=== PATIENT | male | born 1960 | race Caucasian/White ===

== ENCOUNTER 2017-11-25 19:16 | Emergency (ER) | payer BC, MEDICAID ==
[~2017-11-25] VITALS: Ht 177.8 cm; Wt 83.9 kg
[2017-11-25 20:18] LABS: Albumin 4.3 g/dL (3.4-5.0); Anion Gap 10 (5-15); Aspartate Aminotransferase 11 U/L (15-37); BUN/Creatinine Ratio 12.3; Blood Urea Nitrogen 15 mg/dL (7-18); Calcium 8.6 mg/dL (8.5-10.1); Carbon Dioxide 21 mmol/L (21-32); Chloride 104 mmol/L (98-107); GFR African American 79 mL/min; GFR Non-African American 66 mL/min; Glucose 228 mg/dL (74-106); Potassium 4.1 mmol/L (3.5-5.1); Sodium 135 mmol/L (136-145)
[2017-11-25 20:20] LABS: Basophils # (auto) 0 uL; Basophils % (auto) 0.7 % (0.0-2.0); Eosinophils # (auto) 0.1 uL; Eosinophils % (auto) 1.6 % (0.0-7.0); Hematocrit 42.4 % (41.0-53.0); Hemoglobin 14.6 g/dL (13.5-17.5); Lymphocytes # (auto) 2.1 uL; Lymphocytes % (auto) 29.5 % (10.0-50.0); Mean Corpuscular Hemoglobin 32.1 pg (28.0-32.0); Mean Corpuscular Hgb Conc. 34.5 g/dL (32.0-36.0); Monocytes # (auto) 0.5 uL; Monocytes % (auto) 6.5 % (0.0-12.0); Neutrophils # (auto) 4.3 uL; Neutrophils % (auto) 61.7 % (37.0-80.0); Nucleated Red Blood Cells % 0.1 %; Platelet Count (auto) 199 10^3/uL (140-450); Red Blood Cells 4.55 10^6/uL (4.5-5.90); Red Cell Distribution Width 12.8 % (11.8-14.3)
[2017-11-25 20:23] LABS: Alanine Aminotransferase 35 U/L (16-61); Alkaline Phosphatase 80 U/L (45-117); Bilirubin, Total 0.5 mg/dL (0.2-1.0); Total Protein 7.6 g/dL (6.4-8.2)
[2017-11-25 23:46] VITALS: BP 143/96
[2017-11-26 00:01] LABS: Urine Bacteria NONE SEEN /hpf (None Seen); Urine Blood Negative /uL (Negative); Urine Hyaline Cast FEW /lpf (0 - 2); Urine Mucus FEW (None Seen); Urine Specific Gravity 1.015 (1.001-1.035); Urine Sperm PRESENT /hpf (None Seen); Urine WBC 1 /hpf (0 - 3)
[2017-11-26 00:15] LABS: Alcohol, Urine < 3.0 mg/dL (0-5); Amphetamine Screen, Urine NEGATIVE (NEGATIVE); Barbiturate Scree,Urine NEGATIVE (NEGATIVE); Benzodiazephine Screen, Urine NEGATIVE (NEGATIVE); Cannabinoid Screen, Urine NEGATIVE (NEGATIVE); Cocaine Screen, Urine NEGATIVE (NEGATIVE); Opiate Scree,Urine NEGATIVE (NEGATIVE); Phencyclidine Screen, Urine NEGATIVE (NEGATIVE)
== END 2017-11-26 | disposition left against medical advice (07) ==
LOC: ER 19:16
DX: R06.02 Shortness of breath (principal); R07.9 Chest pain, unspecified; Z53.21 Procedure and treatment not carried out due to patient leaving prior to being seen by health care provider
CPT/HCPCS: 36415; 70450; 71045; 80053; 80307; 81001; 82962; 83735; 83880; 84484; 85025; 93005

== ENCOUNTER 2021-03-07 17:58 | Emergency (ER) | payer MEDICAID, MEDICARE ==
[2021-03-07 18:15] VITALS: BP 127/82
[2021-03-07] MEDS ORDERED: InsuLIN R (HUMAN) 100 UNITS in SODIUM CHL 0.9% 99 ML IV SCH (18:45)
[2021-03-07] MEDS ORDERED: DEXTROSE (50%) 50ML SYRG IV PRN (18:45)
[2021-03-07] MEDS ORDERED: INSULIN LANTUS (GLARGINE) 1 /0.01ml (100units/ml) SC ONE (18:45)
[2021-03-07] MEDS ORDERED: SODIUM CHLORIDE 0.9% 1,000 ML IV ONE (18:45)
[2021-03-07 18:52] LABS: Basophils # (auto) 0.1 10 ^3/uL (0-0.2); Basophils % (auto) 1.1 % (0.0-2.0); Eosinophils # (auto) 0.1 10 ^3/uL (0-0.8); Eosinophils % (auto) 1.6 % (0.0-7.0); Hemoglobin 15.8 g/dL (13.5-17.5); Lymphocytes # (auto) 2.2 10 ^3/uL (0.4-5.4); Lymphocytes % (auto) 25.1 % (10.0-50.0); Mean Corpuscular Hemoglobin 32.2 pg (28.0-32.0); Mean Corpuscular Hgb Conc. 35.2 g/dL (32.0-36.0); Mean Corpuscular Volume 91.7 fL (80.0-100.0); Monocytes # (auto) 0.6 10 ^3/uL (0-1.3); Monocytes % (auto) 6.4 % (0.0-12.0); Neutrophils # (auto) 5.7 10 ^3/uL (1.6-8.6); Neutrophils % (auto) 65.8 % (37.0-80.0); Nucleated Red Blood Cells % 0.1 %; Platelet Count (auto) 223 10^3/uL (140-450); Red Cell Distribution Width 13.1 % (11.8-14.3); White Blood Cell 8.7 10^3/uL (4.4-10.8)
[2021-03-07 19:23] LABS: Albumin 3.4 g/dL (3.4-5.0); Magnesium 1.9 mg/dL (1.6-2.6); Potassium 4.7 mmol/L (3.5-5.1)
[2021-03-07 19:26] LABS: Total Protein 7.3 g/dL (6.4-8.2)
[2021-03-07] MEDS ORDERED: ACCU-CHEK COMFORT CURVE STRIP VI SCH (19:30)
[2021-03-07 19:36] LABS: BUN/Creatinine Ratio 22.8
[2021-03-08] MEDS ORDERED: INSULIN LANTUS (GLARGINE) 1 /0.01ml (100units/ml) SC SCH (10:00)
== END 2021-03-08 06:39 | disposition left against medical advice (07) ==
LOC: EDBD 17:58 → ER 18:02
DX: E11.65 Type 2 diabetes mellitus with hyperglycemia (principal); R53.1 Weakness; R11.2 Nausea with vomiting, unspecified; J45.909 Unspecified asthma, uncomplicated; F17.210 Nicotine dependence, cigarettes, uncomplicated
CPT/HCPCS: 36415; 80053; 82010; 83735; 85025; 93005; 99284; J1815

== ENCOUNTER 2021-08-31 12:48 | Inpatient (IN) | payer MEDICARE ==
[~2021-08-31] VITALS: Ht 165.1 cm; Wt 74.2 kg
[2021-08-31] MEDS ORDERED: SODIUM CHLORIDE 0.9% 1,000 ML IV ONE ×4 (13:00→21:15)
[2021-08-31] MEDS ORDERED: MORPHINE SULFATE 4 MG/ML SYR/VIAL IV ONE ×2 (14:30→18:45)
[2021-08-31 15:19] LABS: Hematocrit 42.2 % (41.0-53.0); Hemoglobin 14.4 g/dL (13.5-17.5); Mean Corpuscular Hemoglobin 30.6 pg (28.0-32.0); Mean Corpuscular Hgb Conc. 34.2 g/dL (32.0-36.0); Mean Corpuscular Volume 89.7 fL (80.0-100.0); Red Cell Distribution Width 13.2 % (11.8-14.3)
[2021-08-31 15:23] LABS: Basophils % (manual) 0 (0.0-2.0); Blast Cells 0; Eosinophils % (manual) 0 (0-7); Metamyelocytes % 0; Myelocytes % 0; Promyelocytes % 0; Reactive Lymphocytes 0
[2021-08-31 15:37] LABS: Albumin 2.6 g/dL (3.4-5.0); Calcium 9.4 mg/dL (8.5-10.1); Potassium 4.6 mmol/L (3.5-5.1)
[2021-08-31 15:45] LABS: BUN/Creatinine Ratio 30.3; Bilirubin, Total 1.3 mg/dL (0.2-1.0); Total Protein 7.4 g/dL (6.4-8.2)
[2021-08-31 15:51] LABS: Band Neutrophils % (manual) 20; Lymphocytes % (manual) 8 (10.0-50.0); Monocytes % (manual) 7 (0-12)
[2021-08-31] MEDS ORDERED: InsuLIN REG 1unit/0.01ml Soln (100units/ml) IV STA (15:58)
[2021-08-31 16:58] LABS: Urine Bacteria FEW /hpf (None Seen); Urine Blood 1+ /uL (Negative); Urine Specific Gravity 1.028 (1.001-1.035); Urine WBC 1 /hpf (0 - 3)
[2021-08-31] MEDS ORDERED: InsuLIN REG 1unit/0.01ml Soln (100units/ml) IV ONE (17:00)
[2021-08-31] MEDS ORDERED: NITROGLYCERIN 0.4 MG SL TAB SL PRN ×2 (17:30→18:45)
[2021-08-31] MEDS ORDERED: MORPHINE SULFATE INJECTION 2 MG/ML SYRG IV PRN ×2 (17:30→18:45)
[2021-08-31] MEDS ORDERED: DEXTROSE (50%) 50ML SYRG IV PRN (17:30)
[2021-08-31] MEDS ORDERED: SOD CHL 0.9%/ KCL 20MEQ 1,000 ML IV PRN (17:30)
[2021-08-31] MEDS ORDERED: InsuLIN REG 1unit/0.01ml Soln (100units/ml) SC ONE (17:30)
[2021-08-31] MEDS ORDERED: SODIUM CHLORIDE 0.9% 3,000 ML IV ONE (17:30)
[2021-08-31] MEDS: ACCU-CHEK COMFORT CURVE STRIP VI SCH (17:38)
[2021-08-31] MEDS ORDERED: GABA300C10 PO (17:55)
[2021-08-31] MEDS ORDERED: METF-371 PO (17:55)
[2021-08-31] MEDS ORDERED: POM SC (17:57)
[2021-08-31] MEDS: InsuLIN REG 1unit/0.01ml Soln (100units/ml) SC SCH ×2 (18:00→22:58)
[2021-08-31] MEDS ORDERED: METOPROLOL SUCCINATE XL 50 MG TAB PO ONE (18:30)
[2021-08-31] MEDS ORDERED: BUDESONIDE (INHALATION) 0.5 MG/2 ML NEB NEB ONE (18:30)
[2021-08-31] MEDS ORDERED: cefTRIAXone 1GM/50ML D5W 50 ML IV ONE (18:30)
[2021-08-31] MEDS ORDERED: METOPROLOL TARTRATE 1MG/1ML-5ML VIAL IV PRN (18:30)
[2021-08-31] MEDS ORDERED: IPRATROPIUM BROM 0.5 MG/2.5ML INH SOL NEB ONE (18:30)
[2021-08-31] MEDS ORDERED: PANTOPRAZOLE 40 MG/10 ML VIAL INJ IV ONE (18:30)
[2021-08-31] MEDS ORDERED: ALUM & MAG HYDROX-SIMETH LIQ(MAALOX) 30 ML PO PRN (18:45)
[2021-08-31] MEDS ORDERED: DOCUSATE SOD 100 MG CAP PO PRN (18:45)
[2021-08-31] MEDS ORDERED: SUCRALFATE 1 GM/10 ML ORAL SUSP PO ONE (18:45)
[2021-08-31] MEDS ORDERED: ONDANSETRON HCL 4 MG/2 ML VIAL IV ONE (18:45)
[2021-08-31] MEDS ORDERED: LORazepam 0.5 MG TAB PO PRN (18:45)
[2021-08-31] MEDS: SODIUM CHLORIDE 0.9% 1,000 ML IV SCH ×2 (19:06→22:30)
[2021-08-31] MEDS ORDERED: ETOMIDATE (2MG/ML) 20ML VIAL IV ONE (19:33)
[2021-08-31] MEDS ORDERED: ROCURONIUM 10MG/ML 10ML VIAL IV ONE (19:34)
[2021-08-31 20:05] VITALS: BP 135/76
[2021-08-31] MEDS ORDERED: LORazepam 2MG/ML-1ML VIAL IV ONE (20:15)
[2021-08-31 20:27] LABS: INR 1.09 (0.9-1.15); Partial Thromboplastin Time 30.1 sec (23.6-33.0)
[2021-08-31 20:54] VITALS: BP 96/63
[2021-08-31] MEDS ORDERED: AZITHROMYCIN 500MG/ 250ML 250 ML IV ONE (21:00)
[2021-08-31] MEDS: MIDAZOLAM DRIP 50 mg/50mL 50 ML IV SCH (21:00)
[2021-08-31] MEDS ORDERED: OCTREOTIDE ACETATE 500 MCG in SODIUM CHL 0.9% 99 ML IV SCH (21:15)
[2021-08-31] MEDS: fentaNYL Drip 2500mCg/250mlNS 250 ML IV SCH (21:30)
[2021-08-31 21:54] VITALS: BP 219/106
[2021-08-31] MEDS: BUDESONIDE (INHALATION) 0.5 MG/2 ML NEB NEB SCH (22:00)
[2021-08-31] MEDS: SUCRALFATE 1 GM/10 ML ORAL SUSP PO SCH (22:00)
[2021-08-31] MEDS: IPRATROPIUM BROM 0.5 MG/2.5ML INH SOL NEB SCH (22:00)
[2021-08-31] MEDS: ATORVASTATIN 20 MG TAB PO SCH (22:00)
[2021-08-31] MEDS: INSULIN LANTUS (GLARGINE) 1 /0.01ml (100units/ml) SC SCH (22:00)
[2021-08-31 22:30] VITALS: BP 169/70
[2021-08-31] MEDS: PANTOPRAZOLE 40mg/50ML NS AE 50 ML IV SCH (22:38)
[2021-08-31 22:40] VITALS: BP 121/80
[2021-08-31] MEDS ORDERED: NOREPINEPHRINE 8 MG/250ML KIT 250 ML IV SCH (22:45)
[2021-09-01] VITALS (11 sets, daily range): BP systolic 85–121; BP diastolic 53–80
[2021-09-01 00:11] LABS: Hematocrit 39.1 % (41.0-53.0); Mean Corpuscular Hemoglobin 30.4 pg (28.0-32.0); Mean Corpuscular Hgb Conc. 33.2 g/dL (32.0-36.0); Mean Corpuscular Volume 91.6 fL (80.0-100.0); Red Blood Cells 4.26 10^6/uL (4.5-5.90); Red Cell Distribution Width 13.4 % (11.8-14.3); White Blood Cell 12.9 10^3/uL (4.4-10.8)
[2021-09-01 00:38] LABS: Basophils % (manual) 0 (0.0-2.0); Blast Cells 0; Eosinophils % (manual) 0 (0-7); Metamyelocytes % 0; Promyelocytes % 0; Reactive Lymphocytes 0
[2021-09-01 02:14] LABS: Lymphocytes % (manual) 7 (10.0-50.0); Monocytes % (manual) 11 (0-12); Myelocytes % 2
[2021-09-01 02:15] LABS: Band Neutrophils % (manual) 28
[2021-09-01] MEDS: SODIUM CHLORIDE 0.9% 1,000 ML IV SCH ×5 (03:30→23:30)
[2021-09-01] MEDS ORDERED: OCTREOTIDE ACETATE 500 MCG/ML VL ONE (05:25)
[2021-09-01] MEDS: SUCRALFATE 1 GM/10 ML ORAL SUSP PO SCH ×4 (05:45→23:31)
[2021-09-01 05:47] LABS: Hematocrit 44.9 % (41.0-53.0); Hemoglobin 15.4 g/dL (13.5-17.5); Mean Corpuscular Hemoglobin 31.2 pg (28.0-32.0); Mean Corpuscular Hgb Conc. 34.2 g/dL (32.0-36.0); Mean Corpuscular Volume 91.4 fL (80.0-100.0); Red Blood Cells 4.92 10^6/uL (4.5-5.90); Red Cell Distribution Width 13.6 % (11.8-14.3); White Blood Cell 5.6 10^3/uL (4.4-10.8)
[2021-09-01] MEDS: InsuLIN REG 1unit/0.01ml Soln (100units/ml) SC SCH ×3 (06:04→18:15)
[2021-09-01] MEDS: INSULIN LANTUS (GLARGINE) 1 /0.01ml (100units/ml) SC SCH ×2 (06:04→23:31)
[2021-09-01] MEDS: ACCU-CHEK COMFORT CURVE STRIP VI SCH ×4 (06:05→17:33)
[2021-09-01 06:10] LABS: Basophils % (manual) 0 (0.0-2.0); Blast Cells 0; Eosinophils % (manual) 0 (0-7); Myelocytes % 0; Promyelocytes % 0; Reactive Lymphocytes 0
[2021-09-01] MEDS: IPRATROPIUM BROM 0.5 MG/2.5ML INH SOL NEB SCH ×2 (06:30→18:00)
[2021-09-01] MEDS: BUDESONIDE (INHALATION) 0.5 MG/2 ML NEB NEB SCH ×2 (06:30→18:59)
[2021-09-01] MEDS ORDERED: BUDESONIDE (INHALATION) 0.5 MG/2 ML NEB ONE (06:41)
[2021-09-01] MEDS ORDERED: IPRATROPIUM BROM 0.5 MG/2.5ML INH SOL ONE ×2 (06:41→10:59)
[2021-09-01] MEDS: OCTREOTIDE ACETATE 500 MCG in SODIUM CHL 0.9% 99 ML IV SCH ×2 (07:15→10:45)
[2021-09-01] MEDS: PANTOPRAZOLE 40mg/50ML NS AE 50 ML IV SCH ×3 (07:15→13:27)
[2021-09-01 07:26] LABS: INR 1.05 (0.9-1.15); Partial Thromboplastin Time 30.9 sec (23.6-33.0)
[2021-09-01 07:50] LABS: Band Neutrophils % (manual) 28; Lymphocytes % (manual) 28 (10.0-50.0); Metamyelocytes % 2; Monocytes % (manual) 18 (0-12)
[2021-09-01] MEDS ORDERED: ACETAMINOPHEN 650 MG RECT SUPP PR ONE (07:54)
[2021-09-01 08:03] LABS: BUN/Creatinine Ratio 30.3; Bilirubin, Total 1.5 mg/dL (0.2-1.0); Calcium 7.7 mg/dL (8.5-10.1); Magnesium 2.7 mg/dL (1.6-2.6); Phosphorus 2.7 mg/dL (2.5-4.90); Total Protein 6.4 g/dL (6.4-8.2); Uric Acid 7.6 mg/dL (3.5-7.2)
[2021-09-01] MEDS ORDERED: PROPOFOL 100 ML IV ONE (08:11)
[2021-09-01] MEDS ORDERED: NOREPINEPHRINE 8 MG/250ML KIT 250 ML IV ONE (08:11)
[2021-09-01] MEDS: PROPOFOL 100 ML IV SCH ×2 (08:31→21:14)
[2021-09-01] MEDS: NOREPINEPHRINE 8 MG/250ML KIT 250 ML IV SCH ×2 (08:32→20:07)
[2021-09-01] MEDS: VASOPRESSIN 50 UNITS in D5W 5% 247.5 ML IV SCH (09:30)
[2021-09-01] MEDS ORDERED: PANTOPRAZOLE 40 MG/10 ML VIAL INJ IV SCH (10:00)
[2021-09-01] MEDS: PHENYLEPHRINE IV 250 ML IV SCH ×2 (11:00→19:20)
[2021-09-01] MEDS ORDERED: PHENYLEPHRINE IV 250 ML IV ONE (11:04)
[2021-09-01] MEDS: fentaNYL Drip 2500mCg/250mlNS 250 ML IV SCH (13:25)
[2021-09-01] MEDS: MIDAZOLAM DRIP 50 mg/50mL 50 ML IV SCH ×2 (13:26→21:38)
[2021-09-01] MEDS: ALBUMIN 25% 100 ML IV SCH ×2 (14:15→22:15)
[2021-09-01] MEDS ORDERED: HYDROCORTISONE SOD SUCC 100 MG/2ML INJ VIAL IV ONE (14:30)
[2021-09-01] MEDS: ACETAMINOPHEN 650 MG RECT SUPP PR PRN ×2 (14:49→21:40)
[2021-09-01] MEDS: LEVALBUTEROL HCL 1.25 MG/3 ML NEB NEB SCH (18:00)
[2021-09-01] MEDS: ACETYLCYSTEINE 10 %(100MG/ML) SOL 4ML NEB SCH (18:58)
[2021-09-01] MEDS ORDERED: cefTRIAXone 1GM/50ML D5W 50 ML IV SCH (21:00)
[2021-09-01] MEDS ORDERED: METOPROLOL SUCCINATE XL 50 MG TAB PO SCH (22:00)
[2021-09-01] MEDS ORDERED: AZITHROMYCIN 500MG/ 250ML 250 ML IV SCH (22:00)
[2021-09-01] MEDS: PANTOPRAZOLE 40 MG/10 ML VIAL INJ IV SCH (22:59)
[2021-09-01] MEDS: LINEZOLID 600MG/300ML 300 ML IV SCH (23:00)
[2021-09-01] MEDS: MEROPENEM 1GM IVPB 100 ML IV SCH (23:06)
[2021-09-01] MEDS: ATORVASTATIN 20 MG TAB PO SCH (23:30)
[2021-09-02] VITALS (10 sets, daily range): BP systolic 85–120; BP diastolic 56–73
[2021-09-02] MEDS: ACCU-CHEK COMFORT CURVE STRIP VI SCH ×5 (00:26→23:49)
[2021-09-02] MEDS: InsuLIN REG 1unit/0.01ml Soln (100units/ml) SC SCH ×4 (00:32→18:00)
[2021-09-02] MEDS: ACETYLCYSTEINE 10 %(100MG/ML) SOL 4ML NEB SCH ×5 (01:27→23:28)
[2021-09-02] MEDS: fentaNYL Drip 2500mCg/250mlNS 250 ML IV SCH (02:44)
[2021-09-02] MEDS: HYDROCORTISONE SOD SUCC 100 MG/2ML INJ VIAL IV SCH ×2 (03:00→15:12)
[2021-09-02] MEDS: PHENYLEPHRINE IV 250 ML IV SCH ×3 (03:40→20:20)
[2021-09-02] MEDS: SODIUM CHLORIDE 0.9% 1,000 ML IV SCH ×3 (04:25→14:30)
[2021-09-02] MEDS: IPRATROPIUM BROM 0.5 MG/2.5ML INH SOL NEB SCH ×5 (06:21→23:27)
[2021-09-02] MEDS: BUDESONIDE (INHALATION) 0.5 MG/2 ML NEB NEB SCH ×2 (06:22→18:47)
[2021-09-02] MEDS: LEVALBUTEROL HCL 1.25 MG/3 ML NEB NEB SCH ×5 (06:22→23:27)
[2021-09-02] MEDS: SUCRALFATE 1 GM/10 ML ORAL SUSP PO SCH ×4 (07:00→22:00)
[2021-09-02 07:26] LABS: Hematocrit 38.1 % (41.0-53.0); Hemoglobin 12.5 g/dL (13.5-17.5); Mean Corpuscular Hemoglobin 30.2 pg (28.0-32.0); Mean Corpuscular Hgb Conc. 32.7 g/dL (32.0-36.0); Mean Corpuscular Volume 92.3 fL (80.0-100.0); Red Blood Cells 4.13 10^6/uL (4.5-5.90); Red Cell Distribution Width 14.4 % (11.8-14.3)
[2021-09-02 07:33] LABS: Basophils % (manual) 0 (0.0-2.0); Blast Cells 0; Eosinophils % (manual) 0 (0-7); Myelocytes % 0; Promyelocytes % 0; Reactive Lymphocytes 0
[2021-09-02 07:50] LABS: Albumin 1.8 g/dL (3.4-5.0); Calcium 7.7 mg/dL (8.5-10.1); Potassium 5.1 mmol/L (3.5-5.1)
[2021-09-02 08:06] LABS: BUN/Creatinine Ratio 28.3; Bilirubin, Total 0.9 mg/dL (0.2-1.0); Total Protein 5.9 g/dL (6.4-8.2)
[2021-09-02] MEDS: VASOPRESSIN 50 UNITS in D5W 5% 247.5 ML IV SCH (09:30)
[2021-09-02 09:43] LABS: Band Neutrophils % (manual) 16; Lymphocytes % (manual) 9 (10.0-50.0); Metamyelocytes % 1; Monocytes % (manual) 8 (0-12)
[2021-09-02] MEDS: INSULIN LANTUS (GLARGINE) 1 /0.01ml (100units/ml) SC SCH (10:00)
[2021-09-02] MEDS: PANTOPRAZOLE 40 MG/10 ML VIAL INJ IV SCH ×2 (10:01→22:52)
[2021-09-02] MEDS: MEROPENEM 1GM IVPB 100 ML IV SCH ×2 (10:01→22:51)
[2021-09-02] MEDS: LINEZOLID 600MG/300ML 300 ML IV SCH (10:45)
[2021-09-02] MEDS ORDERED: SODIUM BICARBONATE 8.4 % INJ 50ML VIAL IV ONE (15:45)
[2021-09-02] MEDS ORDERED: SODIUM BICARBONATE 8.4% INJ 50ML SYRINGE ONE (16:12)
[2021-09-02] MEDS: LACTATED RINGER'S 1,000 ML IV SCH (16:30)
[2021-09-02] MEDS ORDERED: CLINDAMYCIN 300MG IV 50 ML IV ONE (16:30)
[2021-09-02] MEDS: MIDAZOLAM DRIP 50 mg/50mL 50 ML IV SCH (20:00)
[2021-09-02] MEDS: ATORVASTATIN 20 MG TAB PO SCH (22:00)
[2021-09-02] MEDS: CLINDAMYCIN 600MG IV 50 ML IV SCH (22:51)
[2021-09-03] MEDS: INSULIN LANTUS (GLARGINE) 1 /0.01ml (100units/ml) SC SCH ×3 (00:01→22:34)
[2021-09-03] MEDS: InsuLIN REG 1unit/0.01ml Soln (100units/ml) SC SCH ×4 (00:01→17:54)
[2021-09-03 02:20] VITALS: BP 130/82
[2021-09-03] MEDS: MIDAZOLAM DRIP 50 mg/50mL 50 ML IV SCH ×3 (04:00→19:40)
[2021-09-03] MEDS: PROPOFOL 100 ML IV SCH ×2 (04:00)
[2021-09-03] MEDS: PHENYLEPHRINE IV 250 ML IV SCH ×3 (04:40→21:20)
[2021-09-03] MEDS: HYDROCORTISONE SOD SUCC 100 MG/2ML INJ VIAL IV SCH ×2 (04:47→14:48)
[2021-09-03] MEDS: SUCRALFATE 1 GM/10 ML ORAL SUSP PO SCH ×4 (06:25→22:34)
[2021-09-03] MEDS: LACTATED RINGER'S 1,000 ML IV SCH (06:26)
[2021-09-03] MEDS: ACCU-CHEK COMFORT CURVE STRIP VI SCH ×3 (06:26→17:49)
[2021-09-03] MEDS: CLINDAMYCIN 600MG IV 50 ML IV SCH ×3 (06:27→22:33)
[2021-09-03] MEDS: LEVALBUTEROL HCL 1.25 MG/3 ML NEB NEB SCH ×3 (06:28→18:07)
[2021-09-03] MEDS: ACETYLCYSTEINE 10 %(100MG/ML) SOL 4ML NEB SCH ×3 (06:28→18:07)
[2021-09-03] MEDS: BUDESONIDE (INHALATION) 0.5 MG/2 ML NEB NEB SCH ×2 (06:28→18:07)
[2021-09-03] MEDS: IPRATROPIUM BROM 0.5 MG/2.5ML INH SOL NEB SCH ×3 (06:28→18:07)
[2021-09-03] MEDS: NOREPINEPHRINE 8 MG/250ML KIT 250 ML IV SCH (06:30)
[2021-09-03 06:40] VITALS: BP 129/75
[2021-09-03 07:09] LABS: Hematocrit 36.4 % (41.0-53.0); Hemoglobin 12.2 g/dL (13.5-17.5); Mean Corpuscular Hemoglobin 30.3 pg (28.0-32.0); Mean Corpuscular Hgb Conc. 33.5 g/dL (32.0-36.0); Mean Corpuscular Volume 90.3 fL (80.0-100.0); Red Blood Cells 4.03 10^6/uL (4.5-5.90); Red Cell Distribution Width 14.3 % (11.8-14.3); White Blood Cell 13.7 10^3/uL (4.4-10.8)
[2021-09-03 07:14] LABS: Basophils % (manual) 0 (0.0-2.0); Blast Cells 0; Eosinophils % (manual) 0 (0-7); Metamyelocytes % 0; Myelocytes % 0; Promyelocytes % 0; Reactive Lymphocytes 0
[2021-09-03 07:20] LABS: Albumin 1.6 g/dL (3.4-5.0); Calcium 8.1 mg/dL (8.5-10.1); Potassium 3.9 mmol/L (3.5-5.1)
[2021-09-03 07:27] LABS: BUN/Creatinine Ratio 31.7; Bilirubin, Total 0.6 mg/dL (0.2-1.0); Total Protein 5.9 g/dL (6.4-8.2)
[2021-09-03 09:12] LABS: Band Neutrophils % (manual) 26; Lymphocytes % (manual) 8 (10.0-50.0)
[2021-09-03 09:13] LABS: Monocytes % (manual) 1 (0-12)
[2021-09-03] MEDS: VASOPRESSIN 50 UNITS in D5W 5% 247.5 ML IV SCH (09:26)
[2021-09-03 10:45] VITALS: BP 132/80
[2021-09-03] MEDS: D5W 5% 1,000 ML IV SCH ×2 (10:53→13:52)
[2021-09-03] MEDS: PANTOPRAZOLE 40 MG/10 ML VIAL INJ IV SCH ×2 (11:16→22:33)
[2021-09-03] MEDS: MEROPENEM 1GM IVPB 100 ML IV SCH ×2 (11:16→22:33)
[2021-09-03 13:46] VITALS: BP 133/80
[2021-09-03 18:07] VITALS: BP 112/68
[2021-09-03] MEDS: fentaNYL Drip 2500mCg/250mlNS 250 ML IV SCH (21:00)
[2021-09-03 22:08] VITALS: BP 110/68
[2021-09-03] MEDS: ATORVASTATIN 20 MG TAB PO SCH (22:34)
[2021-09-04] MEDS: ACCU-CHEK COMFORT CURVE STRIP VI SCH ×5 (00:10→23:59)
[2021-09-04] MEDS: InsuLIN REG 1unit/0.01ml Soln (100units/ml) SC SCH ×5 (00:11→23:59)
[2021-09-04] MEDS: LEVALBUTEROL HCL 1.25 MG/3 ML NEB NEB SCH ×4 (00:42→18:33)
[2021-09-04] MEDS: IPRATROPIUM BROM 0.5 MG/2.5ML INH SOL NEB SCH ×4 (00:42→18:33)
[2021-09-04 00:43] VITALS: BP 113/69
[2021-09-04] MEDS: ACETYLCYSTEINE 10 %(100MG/ML) SOL 4ML NEB SCH ×3 (00:43→18:33)
[2021-09-04] MEDS: HYDROCORTISONE SOD SUCC 100 MG/2ML INJ VIAL IV SCH ×2 (03:15→16:56)
[2021-09-04] MEDS: D5W 5% 1,000 ML IV SCH ×4 (05:15→21:59)
[2021-09-04] MEDS: PHENYLEPHRINE IV 250 ML IV SCH (05:19)
[2021-09-04] MEDS: SUCRALFATE 1 GM/10 ML ORAL SUSP PO SCH ×4 (05:21→21:57)
[2021-09-04] MEDS: BUDESONIDE (INHALATION) 0.5 MG/2 ML NEB NEB SCH ×2 (06:09→18:33)
[2021-09-04 06:25] VITALS: BP 104/63
[2021-09-04] MEDS: CLINDAMYCIN 600MG IV 50 ML IV SCH ×3 (06:39→21:57)
[2021-09-04] MEDS: INSULIN LANTUS (GLARGINE) 1 /0.01ml (100units/ml) SC SCH ×2 (06:45→21:58)
[2021-09-04 09:07] LABS: Basophils # (auto) 0 10 ^3/uL (0-0.2); Basophils % (auto) 0.2 % (0.0-2.0); Eosinophils # (auto) 0 10 ^3/uL (0-0.8); Eosinophils % (auto) 0.1 % (0.0-7.0); Hematocrit 35.3 % (41.0-53.0); Hemoglobin 11.9 g/dL (13.5-17.5); Lymphocytes # (auto) 0.6 10 ^3/uL (0.4-5.4); Lymphocytes % (auto) 4.5 % (10.0-50.0); Mean Corpuscular Hemoglobin 30.6 pg (28.0-32.0); Mean Corpuscular Hgb Conc. 33.6 g/dL (32.0-36.0); Mean Corpuscular Volume 91.1 fL (80.0-100.0); Monocytes # (auto) 0.4 10 ^3/uL (0-1.3); Neutrophils # (auto) 12.8 10 ^3/uL (1.6-8.6); Neutrophils % (auto) 92.2 % (37.0-80.0); Nucleated Red Blood Cells % 0.2 %; Red Blood Cells 3.88 10^6/uL (4.5-5.90); Red Cell Distribution Width 14.5 % (11.8-14.3); White Blood Cell 13.9 10^3/uL (4.4-10.8)
[2021-09-04 09:25] LABS: Albumin 1.5 g/dL (3.4-5.0); Calcium 8.3 mg/dL (8.5-10.1); Potassium 3.7 mmol/L (3.5-5.1)
[2021-09-04 09:27] LABS: BUN/Creatinine Ratio 36.6; Bilirubin, Total 0.4 mg/dL (0.2-1.0); Total Protein 5.5 g/dL (6.4-8.2)
[2021-09-04 10:15] VITALS: BP 100/58
[2021-09-04] MEDS: PANTOPRAZOLE 40 MG/10 ML VIAL INJ IV SCH ×2 (10:18→21:57)
[2021-09-04] MEDS: MEROPENEM 1GM IVPB 100 ML IV SCH ×2 (10:21→17:07)
[2021-09-04 11:18] LABS: Amphetamine Screen, Urine NEGATIVE (NEGATIVE); Barbiturate Scree,Urine NEGATIVE (NEGATIVE); Benzodiazephine Screen, Urine POSITIVE (NEGATIVE); Cannabinoid Screen, Urine NEGATIVE (NEGATIVE); Cocaine Screen, Urine NEGATIVE (NEGATIVE); Opiate Scree,Urine NEGATIVE (NEGATIVE); Phencyclidine Screen, Urine NEGATIVE (NEGATIVE)
[2021-09-04 11:26] LABS: Alcohol, Urine < 3.0 mg/dL (0-10)
[2021-09-04 12:52] LABS: Hepatitis A Ab IgM Negative
[2021-09-04 13:29] LABS: Hepatitis B Core IgM Negative
[2021-09-04 13:46] LABS: Hepatitis C Antibody Negative (Negative)
[2021-09-04 13:48] VITALS: BP 112/68
[2021-09-04 18:33] VITALS: BP 134/73
[2021-09-04] MEDS: ACETAMINOPHEN 325 MG TAB PO PRN (21:59)
[2021-09-04] MEDS: ATORVASTATIN 20 MG TAB PO SCH (22:00)
[2021-09-04 22:28] VITALS: BP 146/74
[2021-09-05] VITALS (19 sets, daily range): BP systolic 97–209; BP diastolic 58–105
[2021-09-05] MEDS: LEVALBUTEROL HCL 1.25 MG/3 ML NEB NEB SCH ×4 (00:12→18:00)
[2021-09-05] MEDS: IPRATROPIUM BROM 0.5 MG/2.5ML INH SOL NEB SCH ×4 (00:12→19:43)
[2021-09-05] MEDS: ACETYLCYSTEINE 10 %(100MG/ML) SOL 4ML NEB SCH ×4 (00:12→19:43)
[2021-09-05] MEDS: MEROPENEM 1GM IVPB 100 ML IV SCH ×3 (02:15→17:45)
[2021-09-05] MEDS ORDERED: LORazepam 2MG/ML-1ML VIAL ONE (02:52)
[2021-09-05] MEDS: HYDROCORTISONE SOD SUCC 100 MG/2ML INJ VIAL IV SCH (03:11)
[2021-09-05] MEDS ORDERED: LORazepam 2MG/ML-1ML VIAL IV ONE (03:15)
[2021-09-05] MEDS ORDERED: DexmedeTOMIDine 4 ML IV ONE (03:58)
[2021-09-05] MEDS: ACCU-CHEK COMFORT CURVE STRIP VI SCH ×3 (06:00→18:30)
[2021-09-05] MEDS: InsuLIN REG 1unit/0.01ml Soln (100units/ml) SC SCH ×3 (06:00→18:00)
[2021-09-05] MEDS: CLINDAMYCIN 600MG IV 50 ML IV SCH (06:00)
[2021-09-05] MEDS: SUCRALFATE 1 GM/10 ML ORAL SUSP PO SCH ×4 (06:44→22:00)
[2021-09-05] MEDS: INSULIN LANTUS (GLARGINE) 1 /0.01ml (100units/ml) SC SCH ×2 (06:45→22:00)
[2021-09-05 08:18] LABS: Basophils # (auto) 0 10 ^3/uL (0-0.2); Basophils % (auto) 0.2 % (0.0-2.0); Eosinophils # (auto) 0 10 ^3/uL (0-0.8); Eosinophils % (auto) 0.3 % (0.0-7.0); Hematocrit 34.9 % (41.0-53.0); Hemoglobin 11.5 g/dL (13.5-17.5); Lymphocytes # (auto) 0.7 10 ^3/uL (0.4-5.4); Lymphocytes % (auto) 5.1 % (10.0-50.0); Mean Corpuscular Hemoglobin 30.1 pg (28.0-32.0); Mean Corpuscular Volume 91.3 fL (80.0-100.0); Monocytes # (auto) 0.2 10 ^3/uL (0-1.3); Monocytes % (auto) 1.3 % (0.0-12.0); Neutrophils # (auto) 13.2 10 ^3/uL (1.6-8.6); Neutrophils % (auto) 93.1 % (37.0-80.0); Nucleated Red Blood Cells % 0.3 %; Red Blood Cells 3.83 10^6/uL (4.5-5.90); Red Cell Distribution Width 14.5 % (11.8-14.3); White Blood Cell 14.2 10^3/uL (4.4-10.8)
[2021-09-05 08:30] LABS: Albumin 1.5 g/dL (3.4-5.0); Calcium 7.6 mg/dL (8.5-10.1); Potassium 4.1 mmol/L (3.5-5.1)
[2021-09-05 08:33] LABS: BUN/Creatinine Ratio 60.7; Bilirubin, Total 0.5 mg/dL (0.2-1.0); Total Protein 4.8 g/dL (6.4-8.2)
[2021-09-05] MEDS ORDERED: PROPOFOL 100 ML IV ONE (09:59)
[2021-09-05] MEDS: PROPOFOL 100 ML IV SCH ×2 (10:00→16:26)
[2021-09-05] MEDS: BUDESONIDE (INHALATION) 0.5 MG/2 ML NEB NEB SCH ×2 (10:01→19:43)
[2021-09-05] MEDS ORDERED: LABETALOL HCL 5 MG/ML 4ML SYRINGE IV ONE (10:08)
[2021-09-05] MEDS ORDERED: LABETALOL HCL 5 MG/ML 4ML SYRINGE IV PRN ×2 (10:15)
[2021-09-05] MEDS: MIDAZOLAM DRIP 50 mg/50mL 50 ML IV SCH (10:30)
[2021-09-05] MEDS: D5W 5% 1,000 ML IV SCH ×2 (10:36→19:45)
[2021-09-05] MEDS: MORPHINE SULFATE INJECTION 2 MG/ML SYRG IV PRN (10:41)
[2021-09-05] MEDS: LORazepam 2MG/ML-1ML VIAL IV PRN (10:42)
[2021-09-05] MEDS ORDERED: VANCOMYCIN PER PHARMACY 0 MG IV SCH (11:00)
[2021-09-05] MEDS ORDERED: VANCOMYCIN 1GM/250ML 250 ML IV SCH ×2 (12:00→20:19)
[2021-09-05] MEDS: fentaNYL Drip 2500mCg/250mlNS 250 ML IV SCH (13:27)
[2021-09-05] MEDS: PANTOPRAZOLE 40 MG/10 ML VIAL INJ IV SCH (16:42)
[2021-09-05] MEDS: FREE WATER GT SCH ×2 (18:29→22:00)
[2021-09-06] MEDS: ACCU-CHEK COMFORT CURVE STRIP VI SCH ×4 (00:53→17:39)
[2021-09-06] MEDS ORDERED: LEVALBUTEROL HCL 1.25 MG/3 ML NEB ONE ×2 (01:42→14:05)
[2021-09-06] MEDS ORDERED: IPRATROPIUM BROM 0.5 MG/2.5ML INH SOL ONE ×3 (01:43→14:06)
[2021-09-06 02:04] VITALS: BP 103/56
[2021-09-06] MEDS: IPRATROPIUM BROM 0.5 MG/2.5ML INH SOL NEB SCH ×4 (02:32→21:07)
[2021-09-06] MEDS: LEVALBUTEROL HCL 1.25 MG/3 ML NEB NEB SCH ×4 (02:32→21:07)
[2021-09-06] MEDS: ACETYLCYSTEINE 10 %(100MG/ML) SOL 4ML NEB SCH ×4 (02:32→21:07)
[2021-09-06] MEDS ORDERED: ATORVASTATIN 20 MG TAB ONE (02:45)
[2021-09-06] MEDS: FREE WATER GT SCH ×6 (02:46→22:24)
[2021-09-06] MEDS: MEROPENEM 1GM IVPB 100 ML IV SCH ×3 (02:46→17:31)
[2021-09-06] MEDS ORDERED: MEROPENEM 1GM IVPB 100 ML IV ONE (02:46)
[2021-09-06] MEDS ORDERED: PANTOPRAZOLE 40 MG/10 ML VIAL INJ IV ONE (02:46)
[2021-09-06] MEDS: ATORVASTATIN 20 MG TAB PO SCH ×2 (02:46→22:25)
[2021-09-06] MEDS: PANTOPRAZOLE 40 MG/10 ML VIAL INJ IV SCH ×3 (02:46→22:24)
[2021-09-06] MEDS: D5W 5% 1,000 ML IV SCH ×2 (05:47→11:00)
[2021-09-06] MEDS: InsuLIN REG 1unit/0.01ml Soln (100units/ml) SC SCH ×4 (06:00→17:39)
[2021-09-06] MEDS ORDERED: ACETYLCYSTEINE 10 %(100MG/ML) SOL 4ML ONE (06:21)
[2021-09-06 06:24] VITALS: BP 117/64
[2021-09-06] MEDS ORDERED: PROPOFOL 100 ML IV ONE (06:59)
[2021-09-06 07:39] LABS: Basophils # (auto) 0 10 ^3/uL (0-0.2); Basophils % (auto) 0.2 % (0.0-2.0); Eosinophils # (auto) 0.2 10 ^3/uL (0-0.8); Eosinophils % (auto) 1.3 % (0.0-7.0); Hematocrit 37.9 % (41.0-53.0); Hemoglobin 12.7 g/dL (13.5-17.5); Lymphocytes # (auto) 1.2 10 ^3/uL (0.4-5.4); Lymphocytes % (auto) 8.4 % (10.0-50.0); Mean Corpuscular Hemoglobin 30.5 pg (28.0-32.0); Mean Corpuscular Hgb Conc. 33.4 g/dL (32.0-36.0); Mean Corpuscular Volume 91.4 fL (80.0-100.0); Monocytes # (auto) 0.6 10 ^3/uL (0-1.3); Monocytes % (auto) 4.3 % (0.0-12.0); Neutrophils # (auto) 12.5 10 ^3/uL (1.6-8.6); Neutrophils % (auto) 85.8 % (37.0-80.0); Nucleated Red Blood Cells % 0.1 %; Red Blood Cells 4.15 10^6/uL (4.5-5.90); Red Cell Distribution Width 14.6 % (11.8-14.3); White Blood Cell 14.6 10^3/uL (4.4-10.8)
[2021-09-06 07:55] LABS: Albumin 1.4 g/dL (3.4-5.0); Calcium 7.9 mg/dL (8.5-10.1); Potassium 3.9 mmol/L (3.5-5.1)
[2021-09-06 08:01] LABS: BUN/Creatinine Ratio 52.2; Bilirubin, Total 0.8 mg/dL (0.2-1.0); Total Protein 5.5 g/dL (6.4-8.2)
[2021-09-06] MEDS: INSULIN LANTUS (GLARGINE) 1 /0.01ml (100units/ml) SC SCH (09:15)
[2021-09-06] MEDS: SUCRALFATE 1 GM/10 ML ORAL SUSP PO SCH ×4 (09:15→22:24)
[2021-09-06] MEDS ORDERED: ACETAMINOPHEN 650 MG RECT SUPP PR PRN (09:15)
[2021-09-06] MEDS: VANCOMYCIN 1GM/250ML 250 ML IV SCH ×2 (09:15→20:39)
[2021-09-06] MEDS ORDERED: VANCOMYCIN 1GM/250ML 250 ML IV ONE (09:36)
[2021-09-06] MEDS: BUDESONIDE (INHALATION) 0.5 MG/2 ML NEB NEB SCH (10:00)
[2021-09-06 10:28] VITALS: BP 114/64
[2021-09-06] MEDS: fentaNYL Drip 2500mCg/250mlNS 250 ML IV SCH ×2 (10:30→13:20)
[2021-09-06] MEDS: MIDAZOLAM DRIP 50 mg/50mL 50 ML IV SCH (10:30)
[2021-09-06] MEDS: PROPOFOL 100 ML IV SCH ×2 (12:45→23:00)
[2021-09-06] MEDS ORDERED: ACETYLCYSTEINE 10 %(100MG/ML) SOL 4ML NEB ONE (14:00)
[2021-09-06 14:24] VITALS: BP 124/66
[2021-09-06] MEDS: ACETAMINOPHEN 325 MG TAB PO PRN (15:05)
[2021-09-06] MEDS: LORazepam 2MG/ML-1ML VIAL IV PRN (15:10)
[2021-09-06 18:30] VITALS: BP 103/55
[2021-09-06 22:09] VITALS: BP 108/57
[2021-09-07] MEDS: InsuLIN REG 1unit/0.01ml Soln (100units/ml) SC SCH ×4 (00:10→18:34)
[2021-09-07] MEDS: INSULIN LANTUS (GLARGINE) 1 /0.01ml (100units/ml) SC SCH ×2 (00:10→06:41)
[2021-09-07] MEDS: ACCU-CHEK COMFORT CURVE STRIP VI SCH ×4 (00:13→18:33)
[2021-09-07] MEDS ORDERED: LEVALBUTEROL HCL 1.25 MG/3 ML NEB ONE (00:24)
[2021-09-07] MEDS ORDERED: IPRATROPIUM BROM 0.5 MG/2.5ML INH SOL ONE (00:24)
[2021-09-07] MEDS: fentaNYL Drip 2500mCg/250mlNS 250 ML IV SCH ×2 (01:00→15:09)
[2021-09-07] MEDS: BUDESONIDE (INHALATION) 0.5 MG/2 ML NEB NEB SCH ×3 (01:01→18:40)
[2021-09-07 01:55] VITALS: BP 110/56
[2021-09-07] MEDS: ACETYLCYSTEINE 10 %(100MG/ML) SOL 4ML NEB SCH ×4 (02:04→18:40)
[2021-09-07] MEDS: LEVALBUTEROL HCL 1.25 MG/3 ML NEB NEB SCH ×4 (02:04→18:40)
[2021-09-07] MEDS: IPRATROPIUM BROM 0.5 MG/2.5ML INH SOL NEB SCH ×4 (02:04→18:40)
[2021-09-07] MEDS: FREE WATER GT SCH ×2 (02:28→06:15)
[2021-09-07] MEDS: MEROPENEM 1GM IVPB 100 ML IV SCH ×3 (02:39→18:33)
[2021-09-07] MEDS: D5W 5% 1,000 ML IV SCH ×2 (02:41→10:27)
[2021-09-07] MEDS: PROPOFOL 100 ML IV SCH ×3 (03:25→15:09)
[2021-09-07 05:50] VITALS: BP 148/66
[2021-09-07] MEDS: SUCRALFATE 1 GM/10 ML ORAL SUSP PO SCH ×3 (06:39→18:32)
[2021-09-07 06:54] LABS: Basophils # (auto) 0 10 ^3/uL (0-0.2); Basophils % (auto) 0.2 % (0.0-2.0); Eosinophils # (auto) 0.3 10 ^3/uL (0-0.8); Eosinophils % (auto) 2.4 % (0.0-7.0); Hematocrit 32.4 % (41.0-53.0); Lymphocytes # (auto) 1.1 10 ^3/uL (0.4-5.4); Lymphocytes % (auto) 8.7 % (10.0-50.0); Mean Corpuscular Hemoglobin 30.8 pg (28.0-32.0); Mean Corpuscular Hgb Conc. 33.8 g/dL (32.0-36.0); Mean Corpuscular Volume 90.9 fL (80.0-100.0); Monocytes # (auto) 0.6 10 ^3/uL (0-1.3); Monocytes % (auto) 4.9 % (0.0-12.0); Neutrophils # (auto) 10.7 10 ^3/uL (1.6-8.6); Neutrophils % (auto) 83.8 % (37.0-80.0); Nucleated Red Blood Cells % 0.1 %; Red Blood Cells 3.57 10^6/uL (4.5-5.90); Red Cell Distribution Width 14.3 % (11.8-14.3); White Blood Cell 12.8 10^3/uL (4.4-10.8)
[2021-09-07 07:14] LABS: Potassium 3.8 mmol/L (3.5-5.1)
[2021-09-07 07:20] LABS: Albumin 1.2 g/dL (3.4-5.0); BUN/Creatinine Ratio 41.8; Calcium 7.5 mg/dL (8.5-10.1); Total Protein 5.1 g/dL (6.4-8.2)
[2021-09-07 07:45] LABS: Bilirubin, Total 0.7 mg/dL (0.2-1.0)
[2021-09-07] MEDS: VANCOMYCIN 1GM/250ML 250 ML IV SCH ×2 (08:04→17:25)
[2021-09-07 10:20] VITALS: BP 121/65
[2021-09-07] MEDS: PANTOPRAZOLE 40 MG/10 ML VIAL INJ IV SCH (10:26)
[2021-09-07] MEDS: MIDAZOLAM DRIP 50 mg/50mL 50 ML IV SCH (10:30)
[2021-09-07 14:13] VITALS: BP 121/65
[2021-09-07] MEDS ORDERED: VANCOMYCIN 1GM/250ML 250 ML IV SCH (18:00)
[2021-09-07 18:45] VITALS: BP 117/59
[2021-09-07 21:55] VITALS: BP 96/45
[2021-09-08] MEDS: PANTOPRAZOLE 40 MG/10 ML VIAL INJ IV SCH ×3 (00:03→22:49)
[2021-09-08] MEDS: ATORVASTATIN 20 MG TAB PO SCH ×2 (00:04→22:49)
[2021-09-08] MEDS: SUCRALFATE 1 GM/10 ML ORAL SUSP PO SCH ×5 (00:04→22:49)
[2021-09-08] MEDS: INSULIN LANTUS (GLARGINE) 1 /0.01ml (100units/ml) SC SCH ×2 (00:13→07:00)
[2021-09-08] MEDS: ACCU-CHEK COMFORT CURVE STRIP VI SCH ×5 (00:13→22:59)
[2021-09-08] MEDS: InsuLIN REG 1unit/0.01ml Soln (100units/ml) SC SCH ×5 (00:22→22:58)
[2021-09-08] MEDS: VANCOMYCIN 1GM/250ML 250 ML IV SCH ×2 (00:27→09:42)
[2021-09-08 02:10] VITALS: BP 115/56
[2021-09-08] MEDS: IPRATROPIUM BROM 0.5 MG/2.5ML INH SOL NEB SCH ×5 (02:46→23:40)
[2021-09-08] MEDS: LEVALBUTEROL HCL 1.25 MG/3 ML NEB NEB SCH ×5 (02:46→23:40)
[2021-09-08] MEDS: ACETYLCYSTEINE 10 %(100MG/ML) SOL 4ML NEB SCH ×5 (02:46→23:41)
[2021-09-08] MEDS: MEROPENEM 1GM IVPB 100 ML IV SCH ×3 (03:15→17:25)
[2021-09-08] MEDS: D5W 5% 1,000 ML IV SCH (03:15)
[2021-09-08 06:00] VITALS: BP 133/60
[2021-09-08] MEDS: BUDESONIDE (INHALATION) 0.5 MG/2 ML NEB NEB SCH ×2 (06:00→18:52)
[2021-09-08 08:25] LABS: Basophils # (auto) 0 10 ^3/uL (0-0.2); Basophils % (auto) 0.2 % (0.0-2.0); Eosinophils # (auto) 0.2 10 ^3/uL (0-0.8); Eosinophils % (auto) 1.7 % (0.0-7.0); Hematocrit 33.6 % (41.0-53.0); Hemoglobin 10.8 g/dL (13.5-17.5); Lymphocytes # (auto) 0.9 10 ^3/uL (0.4-5.4); Lymphocytes % (auto) 7.1 % (10.0-50.0); Mean Corpuscular Hgb Conc. 32.1 g/dL (32.0-36.0); Mean Corpuscular Volume 90.5 fL (80.0-100.0); Monocytes # (auto) 0.7 10 ^3/uL (0-1.3); Monocytes % (auto) 5.6 % (0.0-12.0); Neutrophils # (auto) 10.5 10 ^3/uL (1.6-8.6); Neutrophils % (auto) 85.4 % (37.0-80.0); Red Blood Cells 3.72 10^6/uL (4.5-5.90); Red Cell Distribution Width 14.3 % (11.8-14.3); White Blood Cell 12.3 10^3/uL (4.4-10.8)
[2021-09-08 08:28] LABS: Albumin 1.2 g/dL (3.4-5.0); Calcium 7.6 mg/dL (8.5-10.1); Potassium 3.4 mmol/L (3.5-5.1)
[2021-09-08 08:31] LABS: BUN/Creatinine Ratio 32.8; Bilirubin, Total 0.6 mg/dL (0.2-1.0); Total Protein 5.3 g/dL (6.4-8.2)
[2021-09-08] MEDS: PROPOFOL 100 ML IV SCH (09:29)
[2021-09-08] MEDS: MIDAZOLAM DRIP 50 mg/50mL 50 ML IV SCH (10:30)
[2021-09-08 10:40] VITALS: BP 101/53
[2021-09-08] MEDS ORDERED: D5W 5% 1,000 ML IV ONE (16:30)
[2021-09-08] MEDS ORDERED: VANCOMYCIN 1GM/250ML 250 ML IV SCH (18:00)
[2021-09-08] MEDS: MORPHINE SULFATE INJECTION 2 MG/ML SYRG IV PRN (21:05)
[2021-09-08] MEDS ORDERED: DEXTROSE (50%) 50ML SYRG IV PRN (21:45)
[2021-09-08 23:40] VITALS: BP 145/61
[2021-09-09] MEDS: METOCLOPRAMIDE HCL 5MG/ml INJ 2ml VIAL IV PRN ×2 (00:48→13:44)
[2021-09-09 05:00] VITALS: BP 145/72
[2021-09-09] MEDS ORDERED: CEFEPIME 1 GM in SODIUM CHL 0.9% 50 ML IV SCH (06:00)
[2021-09-09] MEDS: IPRATROPIUM BROM 0.5 MG/2.5ML INH SOL NEB SCH ×3 (06:54→18:38)
[2021-09-09] MEDS: LEVALBUTEROL HCL 1.25 MG/3 ML NEB NEB SCH ×3 (06:54→18:38)
[2021-09-09] MEDS: ACETYLCYSTEINE 10 %(100MG/ML) SOL 4ML NEB SCH ×3 (06:54→18:38)
[2021-09-09] MEDS: ACCU-CHEK COMFORT CURVE STRIP VI SCH ×4 (06:58→22:00)
[2021-09-09] MEDS: DOXYCYCLINE 100MG/250ML 250 ML IV SCH ×2 (06:58→16:23)
[2021-09-09] MEDS: InsuLIN REG 1unit/0.01ml Soln (100units/ml) SC SCH ×3 (06:58→17:44)
[2021-09-09 08:00] VITALS: BP 127/65
[2021-09-09 09:38] LABS: Basophils # (auto) 0 10 ^3/uL (0-0.2); Basophils % (auto) 0.1 % (0.0-2.0); Eosinophils # (auto) 0.1 10 ^3/uL (0-0.8); Eosinophils % (auto) 0.4 % (0.0-7.0); Hematocrit 37.3 % (41.0-53.0); Hemoglobin 12.2 g/dL (13.5-17.5); Lymphocytes # (auto) 0.8 10 ^3/uL (0.4-5.4); Lymphocytes % (auto) 4.5 % (10.0-50.0); Mean Corpuscular Hgb Conc. 32.6 g/dL (32.0-36.0); Monocytes % (auto) 5.8 % (0.0-12.0); Neutrophils # (auto) 15.9 10 ^3/uL (1.6-8.6); Neutrophils % (auto) 89.2 % (37.0-80.0); Nucleated Red Blood Cells % 0.2 %; Red Blood Cells 4.19 10^6/uL (4.5-5.90); Red Cell Distribution Width 13.2 % (11.8-14.3); White Blood Cell 17.9 10^3/uL (4.4-10.8)
[2021-09-09] MEDS: PANTOPRAZOLE 40 MG TAB PO SCH (09:48)
[2021-09-09] MEDS: CEFEPIME 1 GM in SODIUM CHL 0.9% 50 ML IV SCH ×2 (09:48→18:31)
[2021-09-09] MEDS: MORPHINE SULFATE INJECTION 2 MG/ML SYRG IV PRN (11:57)
[2021-09-09 12:45] LABS: Sodium 143 mmol/L (136-145)
[2021-09-09 12:46] LABS: Anion Gap 13 (5-15); BUN/Creatinine Ratio 23.4; Blood Urea Nitrogen 15 mg/dL (7-18); Calcium 7.6 mg/dL (8.5-10.1); Carbon Dioxide 19 mmol/L (21-32); Chloride 111 mmol/L (98-107); GFR African American 165 mL/min; GFR Non-African American 136 mL/min; Glucose 108 mg/dL (74-106); Phosphorus 2.6 mg/dL (2.5-4.90); Potassium 3.7 mmol/L (3.5-5.1)
[2021-09-09 13:00] VITALS: BP 127/64
[2021-09-09] MEDS: BUDESONIDE (INHALATION) 0.5 MG/2 ML NEB NEB SCH ×2 (13:51→18:38)
[2021-09-09 17:00] VITALS: BP 138/71
[2021-09-09 22:00] VITALS: BP 125/67
[2021-09-10] MEDS: PANTOPRAZOLE 40 MG TAB PO SCH ×3 (00:17→21:54)
[2021-09-10] MEDS: MUPIROCIN 2% OINT 15gm or 22gm EACHNOSTRI SCH ×3 (00:17→21:53)
[2021-09-10] MEDS: HYDROcodone-ACET 5/325MG TAB PO PRN ×2 (00:18→05:13)
[2021-09-10] MEDS: InsuLIN REG 1unit/0.01ml Soln (100units/ml) SC SCH ×5 (00:20→21:54)
[2021-09-10] MEDS: LEVALBUTEROL HCL 1.25 MG/3 ML NEB NEB SCH ×4 (00:29→18:57)
[2021-09-10] MEDS: IPRATROPIUM BROM 0.5 MG/2.5ML INH SOL NEB SCH ×4 (00:29→18:57)
[2021-09-10] MEDS: ACETYLCYSTEINE 10 %(100MG/ML) SOL 4ML NEB SCH ×4 (00:29→18:57)
[2021-09-10] MEDS: CEFEPIME 1 GM in SODIUM CHL 0.9% 50 ML IV SCH ×3 (03:15→18:38)
[2021-09-10] MEDS: DOXYCYCLINE 100MG/250ML 250 ML IV SCH ×2 (05:12→16:35)
[2021-09-10] MEDS: ACCU-CHEK COMFORT CURVE STRIP VI SCH ×4 (05:48→21:54)
[2021-09-10 05:53] VITALS: BP 144/71
[2021-09-10 05:55] VITALS: BP 171/95
[2021-09-10] MEDS: BUDESONIDE (INHALATION) 0.5 MG/2 ML NEB NEB SCH ×2 (07:28→18:58)
[2021-09-10 07:38] LABS: Basophils # (auto) 0 10 ^3/uL (0-0.2); Basophils % (auto) 0.2 % (0.0-2.0); Eosinophils # (auto) 0.1 10 ^3/uL (0-0.8); Eosinophils % (auto) 0.9 % (0.0-7.0); Hematocrit 33.3 % (41.0-53.0); Lymphocytes % (auto) 7.8 % (10.0-50.0); Mean Corpuscular Hemoglobin 29.6 pg (28.0-32.0); Mean Corpuscular Volume 89.7 fL (80.0-100.0); Monocytes # (auto) 0.8 10 ^3/uL (0-1.3); Monocytes % (auto) 6.2 % (0.0-12.0); Neutrophils # (auto) 10.8 10 ^3/uL (1.6-8.6); Neutrophils % (auto) 84.9 % (37.0-80.0); Red Blood Cells 3.71 10^6/uL (4.5-5.90); Red Cell Distribution Width 13.3 % (11.8-14.3); White Blood Cell 12.7 10^3/uL (4.4-10.8)
[2021-09-10 07:47] LABS: Potassium 3.1 mmol/L (3.5-5.1)
[2021-09-10 07:58] LABS: Albumin 1.3 g/dL (3.4-5.0); BUN/Creatinine Ratio 31.5; Bilirubin, Total 0.8 mg/dL (0.2-1.0); Calcium 7.5 mg/dL (8.5-10.1); Total Protein 5.1 g/dL (6.4-8.2)
[2021-09-10 09:00] VITALS: BP 145/79
[2021-09-10] MEDS ORDERED: POTASSIUM CHLORIDE 40 MEQ, LIDOCAINE 1% (LOCAL ANESTH.) 4 ML in SODIUM CHL 0.9% 250 ML IV ONE (12:15)
[2021-09-10] MEDS ORDERED: POTASSIUM EFFERVESENT TAB 25 MEQ PO ONE (12:15)
[2021-09-10 13:00] VITALS: BP 142/84
[2021-09-10] MEDS: FUROSEMIDE 20 MG/2 ML VIAL IV SCH (14:33)
[2021-09-10] MEDS: MORPHINE SULFATE INJECTION 2 MG/ML SYRG IV PRN (16:55)
[2021-09-10 17:00] VITALS: BP 143/82
[2021-09-10 22:17] VITALS: BP 143/66
[2021-09-11] MEDS: CEFEPIME 1 GM in SODIUM CHL 0.9% 50 ML IV SCH ×3 (02:17→18:02)
[2021-09-11] MEDS: MORPHINE SULFATE INJECTION 2 MG/ML SYRG IV PRN ×2 (02:55→21:22)
[2021-09-11] MEDS: DOXYCYCLINE 100MG/250ML 250 ML IV SCH ×2 (05:09→16:52)
[2021-09-11 05:30] VITALS: BP 145/71
[2021-09-11] MEDS: IPRATROPIUM BROM 0.5 MG/2.5ML INH SOL NEB SCH ×4 (06:02→18:02)
[2021-09-11] MEDS: LEVALBUTEROL HCL 1.25 MG/3 ML NEB NEB SCH ×4 (06:02→18:03)
[2021-09-11] MEDS: ACETYLCYSTEINE 10 %(100MG/ML) SOL 4ML NEB SCH ×4 (06:02→18:02)
[2021-09-11] MEDS: BUDESONIDE (INHALATION) 0.5 MG/2 ML NEB NEB SCH ×2 (06:02→18:02)
[2021-09-11] MEDS: ACCU-CHEK COMFORT CURVE STRIP VI SCH ×4 (07:20→21:25)
[2021-09-11 07:25] LABS: Basophils # (auto) 0 10 ^3/uL (0-0.2); Basophils % (auto) 0.2 % (0.0-2.0); Eosinophils # (auto) 0.1 10 ^3/uL (0-0.8); Eosinophils % (auto) 0.6 % (0.0-7.0); Hematocrit 30.8 % (41.0-53.0); Hemoglobin 10.4 g/dL (13.5-17.5); Lymphocytes # (auto) 0.9 10 ^3/uL (0.4-5.4); Lymphocytes % (auto) 7.6 % (10.0-50.0); Mean Corpuscular Hemoglobin 29.7 pg (28.0-32.0); Mean Corpuscular Hgb Conc. 33.6 g/dL (32.0-36.0); Mean Corpuscular Volume 88.2 fL (80.0-100.0); Monocytes # (auto) 0.8 10 ^3/uL (0-1.3); Monocytes % (auto) 6.5 % (0.0-12.0); Neutrophils # (auto) 10.4 10 ^3/uL (1.6-8.6); Neutrophils % (auto) 85.1 % (37.0-80.0); Red Cell Distribution Width 13.2 % (11.8-14.3); White Blood Cell 12.2 10^3/uL (4.4-10.8)
[2021-09-11 07:27] LABS: Potassium 3.4 mmol/L (3.5-5.1)
[2021-09-11] MEDS: InsuLIN REG 1unit/0.01ml Soln (100units/ml) SC SCH ×4 (07:29→21:49)
[2021-09-11 07:42] LABS: BUN/Creatinine Ratio 26.8; Calcium 7.6 mg/dL (8.5-10.1); Magnesium 1.9 mg/dL (1.6-2.6)
[2021-09-11 08:30] VITALS: BP 151/72
[2021-09-11] MEDS ORDERED: HYDROcodone-ACET 10/325MG TAB PO PRN (10:00)
[2021-09-11] MEDS ORDERED: PANT40T PO (10:07)
[2021-09-11] MEDS ORDERED: METF-371 PO (10:07)
[2021-09-11] MEDS ORDERED: POTASSIUM CHL 20 Meq TABLET PO ONE (10:15)
[2021-09-11] MEDS: FUROSEMIDE 20 MG/2 ML VIAL IV SCH (10:33)
[2021-09-11] MEDS: MUPIROCIN 2% OINT 15gm or 22gm EACHNOSTRI SCH ×2 (10:33→21:23)
[2021-09-11] MEDS: PANTOPRAZOLE 40 MG TAB PO SCH ×2 (10:34→21:24)
[2021-09-11 12:30] VITALS: BP 146/73
[2021-09-11 16:56] VITALS: BP 114/54
[2021-09-11] MEDS ORDERED: LOSARTAN POTASSIUM 25 MG TAB PO ONE (19:15)
[2021-09-12] MEDS: CEFEPIME 1 GM in SODIUM CHL 0.9% 50 ML IV SCH ×2 (02:13→10:00)
[2021-09-12 05:00] VITALS: BP 124/64
[2021-09-12] MEDS: DOXYCYCLINE 100MG/250ML 250 ML IV SCH (05:42)
[2021-09-12 06:13] LABS: Basophils # (auto) 0 10 ^3/uL (0-0.2); Basophils % (auto) 0.3 % (0.0-2.0); Eosinophils # (auto) 0.1 10 ^3/uL (0-0.8); Eosinophils % (auto) 1.1 % (0.0-7.0); Hematocrit 29.2 % (41.0-53.0); Hemoglobin 10.2 g/dL (13.5-17.5); Lymphocytes # (auto) 1.3 10 ^3/uL (0.4-5.4); Lymphocytes % (auto) 11.2 % (10.0-50.0); Mean Corpuscular Hemoglobin 30.4 pg (28.0-32.0); Mean Corpuscular Hgb Conc. 34.8 g/dL (32.0-36.0); Mean Corpuscular Volume 87.2 fL (80.0-100.0); Monocytes # (auto) 0.8 10 ^3/uL (0-1.3); Monocytes % (auto) 7.3 % (0.0-12.0); Neutrophils # (auto) 8.9 10 ^3/uL (1.6-8.6); Neutrophils % (auto) 80.1 % (37.0-80.0); Nucleated Red Blood Cells % 0.1 %; Red Blood Cells 3.36 10^6/uL (4.5-5.90); Red Cell Distribution Width 12.7 % (11.8-14.3); White Blood Cell 11.2 10^3/uL (4.4-10.8)
[2021-09-12 06:34] LABS: Potassium 3.5 mmol/L (3.5-5.1)
[2021-09-12 06:41] LABS: Calcium 7.4 mg/dL (8.5-10.1)
[2021-09-12] MEDS: ACCU-CHEK COMFORT CURVE STRIP VI SCH (06:56)
[2021-09-12] MEDS: InsuLIN REG 1unit/0.01ml Soln (100units/ml) SC SCH (06:57)
[2021-09-12] MEDS: IPRATROPIUM BROM 0.5 MG/2.5ML INH SOL NEB SCH ×3 (07:13→12:16)
[2021-09-12] MEDS: ACETYLCYSTEINE 10 %(100MG/ML) SOL 4ML NEB SCH ×3 (07:13→12:16)
[2021-09-12] MEDS: LEVALBUTEROL HCL 1.25 MG/3 ML NEB NEB SCH ×3 (07:14→12:16)
[2021-09-12 09:00] VITALS: BP 153/72
[2021-09-12] MEDS ORDERED: HYDR25TA5 PO (09:38)
[2021-09-12] MEDS ORDERED: LEVO750T64 PO (09:38)
[2021-09-12] MEDS ORDERED: DOXY-286 PO (09:38)
[2021-09-12] MEDS ORDERED: LOS25T PO (09:38)
[2021-09-12] MEDS ORDERED: LOSARTAN POTASSIUM 25 MG TAB PO SCH (10:00)
[2021-09-12] MEDS ORDERED: HCTZ 25 MG TAB PO SCH (10:00)
[2021-09-12] MEDS: BUDESONIDE (INHALATION) 0.5 MG/2 ML NEB NEB SCH (10:00)
[2021-09-12] MEDS: MUPIROCIN 2% OINT 15gm or 22gm EACHNOSTRI SCH (10:11)
[2021-09-12] MEDS: ACETAMINOPHEN 325 MG TAB PO PRN (10:11)
[2021-09-12] MEDS: PANTOPRAZOLE 40 MG TAB PO SCH (10:12)
== END 2021-09-12 12:15 | disposition home health service (06) | DRG 870 ==
LOC: EDSEX 12:48 → ER 12:48 → EDBD 12:48 → TELE 17:26 → TELE-CENTR 09-08 23:29
PROVIDERS: ADMIT Hospitalist; ATTEND Internal Medicine
PROC: 06HM33Z Insertion of Infusion Device into Right Femoral Vein, Percutaneous Approach (ICD-10-PCS; principal; 2021-08-31)
PROC: 5A1955Z Respiratory Ventilation, Greater than 96 Consecutive Hours (ICD-10-PCS; 2021-08-31)
PROC: 30233N1 Transfusion of Nonautologous Red Blood Cells into Peripheral Vein, Percutaneous Approach (ICD-10-PCS; 2021-08-31)
PROC: 5A09357 Assistance with Respiratory Ventilation, Less than 24 Consecutive Hours, Continuous Positive Airway Pressure (ICD-10-PCS; 2021-08-31)
PROC: 0BH17EZ Insertion of Endotracheal Airway into Trachea, Via Natural or Artificial Opening (ICD-10-PCS; 2021-08-31)
DX: A41.02 Sepsis due to Methicillin resistant Staphylococcus aureus (principal); J69.0 Pneumonitis due to inhalation of food and vomit; J96.01 Acute respiratory failure with hypoxia; N17.0 Acute kidney failure with tubular necrosis; R65.21 Severe sepsis with septic shock; E43 Unspecified severe protein-calorie malnutrition; I21.A1 Myocardial infarction type 2; J15.212 Pneumonia due to Methicillin resistant Staphylococcus aureus; E11.00 Type 2 diabetes mellitus with hyperosmolarity without nonketotic hyperglycemic-hyperosmolar coma (NKHHC); K92.2 Gastrointestinal hemorrhage, unspecified; J45.901 Unspecified asthma with (acute) exacerbation; J90 Pleural effusion, not elsewhere classified; J98.11 Atelectasis; E87.0 Hyperosmolality and hypernatremia; E87.3 Alkalosis; F11.20 Opioid dependence, uncomplicated; E11.40 Type 2 diabetes mellitus with diabetic neuropathy, unspecified; N18.32 Chronic kidney disease, stage 3b; M54.9 Dorsalgia, unspecified; E11.65 Type 2 diabetes mellitus with hyperglycemia; E11.21 Type 2 diabetes mellitus with diabetic nephropathy; E55.9 Vitamin D deficiency, unspecified; G89.29 Other chronic pain; E86.0 Dehydration; Z68.25 Body mass index [BMI] 25.0-25.9, adult; Z22.322 Carrier or suspected carrier of Methicillin resistant Staphylococcus aureus; Z91.14 Patient's other noncompliance with medication regimen; Z83.3 Family history of diabetes mellitus; Z91.19 Patient's noncompliance with other medical treatment and regimen
CPT/HCPCS: 31500; 36415; 36430; 36556; 36600; 71045; 71250; 74176; 76705; 80048; 80053; 80074; 80202; 80307; 81001; 82010; 82306; 82805; 82962; 83036; 83735; 83880; 83930; 84100; 84443; 84484; 84550; 85007; 85025; 85027; 85379; 85610; 85730; 86850; 86900; 86901; 86920; 87040; 87070; 87077; 87081; 87086; 87186; 87205; 87426; 92610; 93005; 93306; 93970; 94002; 94003; 94640; 94660; 96361; 96374; 96375; 97110; 97116; 97163; 99291; C9113; G0378; J0696; J1815; J2001; J2185; J2250; J2405; J2704; J3490; J7060; P9047